=== PATIENT | female | born 1960 | race Caucasian/White ===

== ENCOUNTER 2017-09-28 11:00 | Emergency (ER) | payer OTHER ==
[~2017-09-28] VITALS: Ht 172.7 cm; Wt 82.0 kg
[2017-09-28 11:28] VITALS: BP 153/93
== END 2017-09-28 11:52 | disposition home or self-care (01) ==
LOC: ED 11:40
DX: Z00.00 Encounter for general adult medical examination without abnormal findings (principal)
CPT/HCPCS: 99281

== ENCOUNTER 2017-09-28 12:41 | Emergency (ER) | payer OTHER ==
[~2017-09-28] VITALS: Ht 172.7 cm; Wt 81.0 kg
[2017-09-28] MEDS ORDERED: ONDANSETRON 2MG/ML, 2ML ONE (13:29)
[2017-09-28] MEDS ORDERED: KETOROLAC 30 MG/1 ML ONE (13:29)
[2017-09-28] MEDS ORDERED: MORPHINE SULFATE 4 MG/ML, 1ML ONE (13:29)
[2017-09-28] MEDS ORDERED: MORPHINE SULFATE 4 MG/ML, 1ML IVPush PRN (13:30)
[2017-09-28 13:54] LABS: BASOPHILS # (AUTO) 0.04 x10^3/uL (0-0.1); BASOPHILS % (AUTO) 1 % (0-1); EOSINOPHILS # (AUTO) 0.14 x10^3/uL (0-0.4); EOSINOPHILS % (AUTO) 2 % (1-7); LYMPHOCYTES % (AUTO) 42 % (22-44); MD NO; MEAN CORPUSCULAR HEMOGLOBIN 32.2 pg (27.0-34.8); MEAN CORPUSCULAR HGB CONC 33.7 g/dL (32.4-35.8); MEAN CORPUSCULAR VOLUME 95.6 fL (80-100); MEAN PLATELET VOLUME 8.3 fL (7.4-10.4); MONOCYTES % (AUTO) 6 % (2-9); NEUTROPHILS # (AUTO) 3.58 x10^3/uL (1.8-6.8); NEUTROPHILS % (AUTO) 50 % (42-75); PLATELET COUNT 329 x10^3/uL (130-400); RED CELL DISTRIBUTION WIDTH 13.2 % (9.6-15.2)
[2017-09-28] MEDS ORDERED: ONDANSETRON ODT 4 MG PO ONE (14:00)
[2017-09-28] MEDS ORDERED: SODIUM CHLORIDE 0.9% 1,000ML IV ONE (14:00)
[2017-09-28] MEDS ORDERED: KETOROLAC 30 MG/1 ML IVPush ONE (14:00)
[2017-09-28 14:06] LABS: ALBUMIN 4.4 g/dL (3.4-5.0); ANION GAP 7 mmol/L (5-15); CALCIUM 9.7 mg/dL (8.5-10.1); CHLORIDE 108 mmol/L (98-107)
[2017-09-28 14:08] LABS: CREATININE 0.85 mg/dL (0.55-1.02)
[2017-09-28 14:12] LABS: MICROSCOPIC INDICATED
[2017-09-28] MEDS ORDERED: SODIUM CHLORIDE FLUSH 10ML SYR IVF ONE (14:30)
[2017-09-28 14:33] LABS: CULTURE INDICATED? NO
[2017-09-28 16:29] VITALS: BP 150/85
== END 2017-09-28 16:33 | disposition home or self-care (01) ==
LOC: ED 14:34
DX: N20.1 Calculus of ureter (principal); N13.2 Hydronephrosis with renal and ureteral calculous obstruction; M54.5 Low back pain; M54.6 Pain in thoracic spine
CPT/HCPCS: 36415; 74018; 74176; 80048; 81001; 82040; 85025; 96361; 96374; 99285; J1885; J7030; Q0162